=== PATIENT | female | born 1935 | race American Indian/Alaskan Native ===

== ENCOUNTER 2017-11-14 11:26 | Inpatient (IN) | payer MEDICARE, OTHER, SELFPAY ==
[2017-11-09 14:18] VITALS: BMI 28.7
[2017-11-14] VITALS (19 sets, daily range): BP systolic 127–181; BP diastolic 57–86; PULSE 81–100; RESP 12–18; TEMP 36.1–36.8; O2SAT 94–100; BMI 27.7
--- NOTE | 2017-11-14 | DI.RAD.S_ITS ---
PROCEDURE: XR LUMBAR SPINE 2-3V INDICATIONS: L4-5 TLIF TECHNIQUE: 2 views of the lumbar spine were acquired. COMPARISON: [facility] Outside Film, MR, MR LUMBAR SPINE WITHOUT CONTRAST, 10/08/2017, 10:41. FINDINGS: Bones: Immediate postoperative examination after placement of transverse pedicle screws and vertical fixation rods, and interbody disc prosthesis at L4-5, establishing normal alignment. Soft tissues: Overlying bowel gas pattern is normal. No suspicious soft tissue calcifications. IMPRESSION: Normal alignment after L4-5 spine fusion. Dictated by: Joseph Taylor M.D. on 11/14/2017 at 15:41 Approved by: Joseph Taylor M.D. on 11/14/2017 at 15:44
[2017-11-14] MEDS: LACTATED RINGERS 1,000 ML 42 ML IV ×2 (11:58→14:01)
--- NOTE | 2017-11-14 12:16 | PM.PREOP ---
Pre-operative Note Interval Note Pre-op Check: History & Physical Reviewed by Physician, Exam Performed and History & Physical exam performed today
[2017-11-14] MEDS: CEFAZOLIN 2 GM/100 ML FROZ.PIGGY IV ×2 (12:53→23:37)
--- NOTE | 2017-11-14 13:45 | SUR.OPER ---
Prone on spine table, head in foam head support, padded chest and pelvic supports, gel pad at knees, lower legs supported by pillows; nipples, genitalia and toes free of pressure, arms secured on foam padded arm boards at <90 degrees abduction. Tape over blanket at thigh secured to table.
[2017-11-14] MEDS: BUPIVACAINE LIPOSOME 266 MG/20 ML VIAL INJ (13:58)
[2017-11-14] MEDS: BUPIVACAINE 0.25% W/ EPI 50 ML VIAL 30 ML INJ (13:58)
[2017-11-14] MEDS: fentaNYL 100 MCG/2 ML INJ 50 MCG IV ×5 (13:59→16:04)
--- NOTE | 2017-11-14 15:21 | PM.OP.1 ---
Operative Date/Time/Diagnoses Date of procedure: 11/14/17 Time of procedure: 12:21 Pre-op diagnosis: 1. L4-5 spondylolisthesis 2. L4-5 spinal stenosis 3. L4-5 spondylosis with radiculopathy Post-op diagnosis: same Procedure & Clinicians Procedure: 1. L4-5 Postero-lateral and posterior interbody fusion 2. L4-5 interbody cage placement. 3. L4-5 decompressive laminectomy with bilateral facetecomies 4. L4-5 Posterior non-segmental instrumentation 5. [place] of bone marrow from iliac crest 6. Utilization of microsurgical technique and operating microscope Same procedure as scheduled: Yes Indications: Patient has been having chronic back pain and worsening lumbar radiculopathy. Patient failed multiple conservative management with worsening pain weakness and numbness in her lower extremity. Patient has been having difficulty performing activity of daily living. After discussing risks benefits of treatment options, patient elected proceed with surgery. Surgeon: Master Dickson Newspaper Correspondent: Alva Hugo Click Yes if Unassisted: No Anesthesia Type: General Operative Notes Closure Type: primary Specimen(s): none sent Implants & Drains: Globus revolve, Globus Rise cage Applied: catheter Estimated Blood Loss (mL): 100 Blood products transfused: none Procedure in detail: Patient was seen in the preoperative area. Risks and benefits of the surgery was discussed with the patient. Informed consent was obtained from the patient and placed in the chart. Surgical site was marked. Patient was taken to the operative room. General anesthesia was administered. Prophylactic antibiotic was given to the patient less than 30 min before the incision was made. Patient was placed into a prone position on the Matthew table. Patient's back was then prepped and draped in the sterile fashion. Time-out was performed at this time. Using AP and lateral C-arm imaging the interval between L4-5 was identified and marked on patient's back. A 2 inch incision 2 in from midline was made on the right side first. The fascia was incised in line with skin incision. Globus MARS retractors was placed inside the incision and docked onto the L4 lamina. Using microsurgical technique and operating microscope, a L4 laminectomy and L4-5 facetectomy was performed using a Kerrison rongeur. The disc space at L4-5 was identified. And a total diskectomy was performed at L4-5 level. The endplates were decorticated using a rasp and shaver. The total diskectomy and decortication was performed at L4-5 level in order to to accomplish a L4-5 fusion. The local bone from the laminectomy and facetectomy was saved for local bone grafting. After the total diskectomy and decortication was completed, Globus viacell bone graft material was combined with local bone that was harvested earlier. At this time, a separate skin is incision was made over the iliac crest. A Jamshidi needle was inserted into the iliac crest through a separate skin incision. 5 cc of bone marrow aspiration was obtained through the separate skin incision using a Jamshidi needle from the iliac crest. The bone marrow aspiration was combined with local bone and the via cell bone grafting material. The bone grafting material was placed into the L4-5 interbody space along with a expandable cage. The cage was expanded to its maximum height using the torque limiting screwdriver. At this time a mirror image incision was made on the left side. The fascia was incised in line with the skin incision. Globus MARS retractor was inserted and docked onto the L4-5 posterolateral gutter. Using the power drill, posterior-lateral decortication was performed at L4-5 level until bleeding cortical bone was identified. The remaining bone grafting material was placed into the L4-5 posterior lateral gutter he order to accomplish posterolateral fusion at the L4-5 level. Using the double C-arm technique, pedicle screws were placed into the L4-5 pedicles bilaterally. This was done by placing the Jamshidi needle into the pedicles, then placing the guidewires over the Jamshidi needle, and finally placing the cannulated screws over the guidewires bilaterally. After the pedicle screws were placed, 2 titanium rods was locked into the heads of the pedicle screws using locking caps and torque limiting screwdriver. After all the hardware was placed, and confirmed with AP and lateral C-arm imaging, the wound was then irrigated with sterile normal saline and packed with Ray-Homa gauze for 3 min to accomplish hemostasis. After the gauze was removed the deep fascia was closed with #1 Vicryl suture. The subcutaneous layer was closed with 2-0 Vicryl. The skin was closed with skin yris. Patient tolerated the procedure well. There were no complications. Complications: none Condition: stable Disposition: Acute Care Plan for aftercare: Admit to inpatient hospital
--- NOTE | 2017-11-14 15:24 | P.OP_ITS ---
Operative Date/Time/Diagnoses Date of procedure: 11/14/17 Time of procedure: 12:21 Pre-op diagnosis: 1. L4-5 spondylolisthesis 2. L4-5 spinal stenosis 3. L4-5 spondylosis with radiculopathy Post-op diagnosis: same Procedure & Clinicians Procedure: 1. L4-5 Postero-lateral and posterior interbody fusion 2. L4-5 interbody cage placement. 3. L4-5 decompressive laminectomy with bilateral facetecomies 4. L4-5 Posterior non-segmental instrumentation 5. [place] of bone marrow from iliac crest 6. Utilization of microsurgical technique and operating microscope Same procedure as scheduled: Yes Indications: Patient has been having chronic back pain and worsening lumbar radiculopathy. Patient failed multiple conservative management with worsening pain weakness and numbness in her lower extremity. Patient has been having difficulty performing activity of daily living. After discussing risks benefits of treatment options, patient elected proceed with surgery. Surgeon: Master Dickson Media Operator: Alva Hugo Click Yes if Unassisted: No Anesthesia Type: General Operative Notes Closure Type: primary Specimen(s): none sent Implants & Drains: Globus revolve, Globus Rise cage Applied: catheter Estimated Blood Loss (mL): 100 Blood products transfused: none Procedure in detail: Patient was seen in the preoperative area. Risks and benefits of the surgery was discussed with the patient. Informed consent was obtained from the patient and placed in the chart. Surgical site was marked. Patient was taken to the operative room. General anesthesia was administered. Prophylactic antibiotic was given to the patient less than 30 min before the incision was made. Patient was placed into a prone position on the Matthew table. Patient's back was then prepped and draped in the sterile fashion. Time- out was performed at this time. Using AP and lateral C-arm imaging the interval between L4-5 was identified and marked on patient's back. A 2 inch incision 2 in from midline was made on the right side first. The fascia was incised in line with skin incision. Globus MARS retractors was placed inside the incision and docked onto the L4 lamina. Using microsurgical technique and operating microscope, a L4 laminectomy and L4- 5 facetectomy was performed using a Kerrison rongeur. The disc space at L4-5 was identified. And a total diskectomy was performed at L4-5 level. The endplates were decorticated using a rasp and shaver. The total diskectomy and decortication was performed at L4-5 level in order to to accomplish a L4-5 fusion. The local bone from the laminectomy and facetectomy was saved for local bone grafting. After the total diskectomy and decortication was completed , Globus viacell bone graft material was combined with local bone that was harvested earlier. At this time, a separate skin is incision was made over the iliac crest. A Jamshidi needle was inserted into the iliac crest through a separate skin incision. 5 cc of bone marrow aspiration was obtained through the separate skin incision using a Jamshidi needle from the iliac crest. The bone marrow aspiration was combined with local bone and the via cell bone grafting material. The bone grafting material was placed into the L4-5 interbody space along with a expandable cage. The cage was expanded to its maximum height using the torque limiting screwdriver. At this time a mirror image incision was made on the left side. The fascia was incised in line with the skin incision. Globus MARS retractor was inserted and docked onto the L4-5 posterolateral gutter. Using the power drill, posterior- lateral decortication was performed at L4-5 level until bleeding cortical bone was identified. The remaining bone grafting material was placed into the L4-5 posterior lateral gutter he order to accomplish posterolateral fusion at the L4- 5 level. Using the double C-arm technique, pedicle screws were placed into the L4-5 pedicles bilaterally. This was done by placing the Jamshidi needle into the pedicles, then placing the guidewires over the Jamshidi needle, and finally placing the cannulated screws over the guidewires bilaterally. After the pedicle screws were placed, 2 titanium rods was locked into the heads of the pedicle screws using locking caps and torque limiting screwdriver. After all the hardware was placed, and confirmed with AP and lateral C-arm imaging, the wound was then irrigated with sterile normal saline and packed with Ray-Homa gauze for 3 min to accomplish hemostasis. After the gauze was removed the deep fascia was closed with #1 Vicryl suture. The subcutaneous layer was closed with 2-0 Vicryl. The skin was closed with skin yris. Patient tolerated the procedure well. There were no complications. Complications: none Condition: stable Disposition: Acute Care Plan for aftercare: Admit to inpatient hospital
[2017-11-14] MEDS: LACTATED RINGERS 1,000 ML 100 ML IV (15:37)
[2017-11-14] MEDS: HYDROMORPHONE 1 MG INJ 0.5 MG IV ×6 (16:10→16:41)
[2017-11-14] MEDS: SODIUM CHLORIDE 0.9% 1,000 ML 100 ML IV (17:28)
[2017-11-14] MEDS: OXYCODONE IR 5 MG TABLET 10 MG PO ×3 (17:32→23:41)
--- NOTE | 2017-11-14 18:57 | PC.NURSE ---
Addendum entered by Mariana Hogan R.N. 11/14/17 21:10: Bed alarm on for pt safety. Stable post op course. Original Note: Addendum entered by Mariana Hogan R.N. 11/14/17 21:09: Original Note: Addendum entered by Mariana Hogan R.N. 11/14/17 21:04: Pt awake, Med at 2030 for discomfort w/fair relief. Dsg to back CDI. Family in room. Allen cath patent clear urine. Stable post op course. Call light w/in reacbh= Original Note: Pt arrrived to RM 215 from PACU@ 1650. Awake. drowsy, Dsg to back CDI. IV of NR @ 100cc/hr infusing via pump into the LFA w/o incidence. Med @ 1730 w/oxycodone 10mg w/good relief. Allen cath patent clear yellow urine. Call light w/in reach, bed alarm on for pt safety.
[2017-11-14] MEDS: DOCUSATE 100 MG CAPSULE PO (20:25)
[2017-11-14] MEDS: GEMFIBROZIL 600 MG TABLET PO (20:25)
[2017-11-14] MEDS: SENNOSIDES 8.6 MG TABLET 17.2 MG PO (20:26)
[2017-11-15] MEDS: ACETAMINOPHEN 325 MG TABLET 650 MG PO ×4 (00:27→20:05)
--- NOTE | 2017-11-15 01:09 | PC.NURSE ---
Addendum entered by Fatou Brito R.N. 11/15/17 03:38: Complains of 5/10 back pain and irritation from catheter. Also complains of itchiness. Medicated with Oxycodone + Benadryl. SCD's removed for next hour as per protocol and patient request. Original Note: Patient is alert and oriented. Breath sounds CTA with RA sat of 97%. HRR. Denies nausea. BT present but denies flatus. Indwelling catheter is patent with clear, pale yellow urine. Needing assistance to reposition q2h but prefers to lie on back. Dressing to back is CDI. CMS intact. Wearing bilateral footie SCD's. Received Oxycodone + Tylenol earlier for complaint of 8/10 incsional pain radiating into left thigh and currently states pain is 5/10 and tolerable. Fall risk score is high as patient reports multiple falls in past 3 months; bed alarm is activated. Family rooming in.
[2017-11-15] MEDS: diphenhydrAMINE 50 MG/ML VIAL 25 MG IV (03:30)
[2017-11-15] MEDS: OXYCODONE IR 5 MG TABLET 10 MG PO ×6 (03:30→22:26)
[2017-11-15] MEDS: SODIUM CHLORIDE 0.9% 1,000 ML 100 ML IV (03:36)
[2017-11-15 06:16] LABS: Hematocrit 34.1 % (36-46); Hemoglobin 11.6 g/dL (12.0-16.0)
[2017-11-15 06:19] VITALS: BP 125/57; PULSE 81; RESP 16; TEMP 36.7; O2SAT 96
[2017-11-15] MEDS: CEFAZOLIN 2 GM/100 ML FROZ.PIGGY IV (06:40)
[2017-11-15 08:13] VITALS: BP 129/53; PULSE 78; RESP 16; TEMP 36.6; O2SAT 95
[2017-11-15] MEDS: DOCUSATE 100 MG CAPSULE PO ×2 (08:25→21:10)
[2017-11-15] MEDS: GEMFIBROZIL 600 MG TABLET PO ×2 (08:25→21:10)
--- NOTE | 2017-11-15 09:29 | PM.PNPO.1 ---
Subjective Date Patient Seen: 11/15/17 Time Patient Seen: 09:19 Interval history: Patient is seen bedside status post L4-5 TLIF at [facility] postop day 1. She is doing well, her pain is well controlled but she has not been up with physical therapy. She would like to go home possibly tomorrow. She denies any numbness and tingling. She would like to have her catheter removed. Exam Vital Signs (past 8 hours): - 11/15/17 06:19 11/15/17 08:13 Temperature 98.1 F 97.9 F Pulse Rate 81 78 Respiratory Rate 16 16 Blood Pressure 125/57 H 129/53 H Pulse Oximetry 96 95 Oxygen Delivery Method Room Air Narrative Exam Narrative: Patient is well-developed well-nourished in no acute distress. Patient alert oriented x3. Examination shows that spinal dressing is clean dry and intact. Patient has full range of motion of the ankle 2+ pulses full sensation in the lower extremities and soft compressible calves. Objective Labs Result Diagrams: 11/15/17 05:45 Labs: Laboratory Results - last 24 hr 11/15/17 05:45 Hgb 11.6 L Hct 34.1 L Assessment & Plan Post-op (1) Spondylisthesis: Current Visit: Yes Status: Acute Postoperative Procedures Operation Date: 11/14/17 13:15 Actual Procedures Side Surgeon p L4-5 TLIF Master Dickson MD Patient is postop day 1 status post above procedure. Continue pain control and DVT prophylaxis have physical therapy work with patient. Possible discharge for tomorrow if she does well. Discontinue Allen once patient is out of bed. All questions answered at the time of examination Time Spent With Patient less than 15 minutes Quality VTE Deep Vein Thrombosis/Pulmonary Embolism Present on Admission: No
--- NOTE | 2017-11-15 10:00 | PT.IIE ---
Current Diagnoses Spondylolisthesis, site unspecified (11/14/17) Spondylolisthesis, lumbar region (11/14/17) Other spondylosis with radiculopathy, lumbar region (11/14/17) Spinal stenosis, lumbar region without neurogenic claudication (11/14/17) Surgery Performed Operation Date: 11/14/17 13:15 Actual Procedures p L4-5 TLIF - Master Dickson MD Surgical History (Last Updated 11/09/17 @ 14:40 by Libra Vázquez RN) History of Trey fundoplication (Acute) History of ankle surgery (Acute) History of partial hysterectomy (Acute) History of total left hip arthroplasty (Acute) History of tubal ligation (Acute) Hx of bilateral cataract extraction (Acute) S/P right rotator cuff repair (Acute) Medical History (Last Updated 11/09/17 @ 15:04 by Libra Vázquez RN) Diabetes (Acute) Glaucoma (Acute) History of tracheal stenosis (Acute) Idiopathic thrombocytopenia purpura (Acute) Rash (Acute) Physical Therapy Inpatient Evaluation/Re-Eval M1 PT/OT-IP Prior Functional Status Start: 11/15/17 10:20 Freq: NEEDED Status: Active Protocol: Document 11/15/17 10:00 MDD (Rec: 11/15/17 12:24 MDD [email or web address]) Medical Review Prior Functional Status Medical History Reviewed Yes Mobility and Gait independent with gait Activities of Daily Living and IADL's independent with ADL's Prior Functional Level (Other details) 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 Previous L hip replacement 2 years ago. Social History Household Members family children Living Arrangements House Number of Floors (Floors) Two Floors Number of Stairs To Enter/Railing? 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 She is paid caregiver through the [employer] for her mother. Daughters live at home and are available to help throughout the day. M1 PT/OT-IP Prior Functional Status Start: 11/15/17 11:56 Freq: NEEDED Status: Active Protocol: Document 11/15/17 10:00 MDD (Rec: 11/15/17 12:24 MDD [email or web address]) M2 PT-IP Current Condition Start: 11/15/17 11:56 Freq: NEEDED Status: Active Protocol: Document 11/15/17 10:00 MDD (Rec: 11/15/17 12:24 MDD [email or web address]) Physical Therapy Current Condition Precautions Lumbar Precautions Log Roll No Twisting Limit Bending Lifting Restriction of 10 lbs Gait Belt above Incisional Area M3 PT-IP Subjective Start: 11/15/17 11:56 Freq: NEEDED Status: Active Protocol: Document 11/15/17 10:00 MDD (Rec: 11/15/17 12:24 MDD [email or web address]) Subjective Physical Therapy Visit Type Type Initial Evaluation Visit Start Time 09:40 Visit Stop Time 10:22 Total Visit Minutes 32 Notes left room to allow patient to sit up in chair from 10:00 to 10:12 Number of BOOK JACKET COVER MACHINE OPERATOR Visits 0 Physical Therapy Visit Comments Patient Comments Very motivated to go home Therapy Pain Assessment Pain When Pain Assessed After Treatment Pain Present Pain Present Pain Reported Location Back Intensity 6 Scale Used Numeric (1 - 10) Description Aching Pain Behaviors Facial Grimacing Guarding M4 PT-IP Mobility and Gait Start: 11/15/17 11:56 Freq: NEEDED Status: Active Protocol: Document 11/15/17 10:00 MDD (Rec: 11/15/17 12:24 MDD [email or web address]) PT-Bed Mobility Assessment Rolling Type of Rolling Bilateral Level of Assist Independent Supine to Sit Supine to Sit Standby Assistance Sit to Supine Sit to Supine Standby Assistance Scooting Scooting to Edge of Bed Independent Scooting Up and Down in Bed Independent PT-Transfer Assessment Sit to and From Stand Sit to and from Stand Standby Assistance Contact Guard Assistance Equipment Transfer Assistive Device Gait Belt Front Wheeled Walker Orthotic/Prosthetic Devices or Brace: No Transfers Transfer Destination Bed Chair Transfer Ability Level of Assist Standby Assistance Gait Assessment Gait Gait Assistance Required: Standby Assistance Contact Guard Assist Distance (Feet) (feet) 25 Able to Maintain Weight Bearing Status Yes During Gait Assistive Devices Assistive Device Gait Belt Front Wheeled Walker Gait Deviations General Gait Pattern Antalgic PT-Balance Assessment Sitting Balance and Reactions Static Sitting Balance Ability Normal Dynamic Sitting Balance Ability Normal M5 PT-IP Objective Assessments Start: 11/15/17 11:56 Freq: NEEDED Status: Active Protocol: Document 11/15/17 10:00 MDD (Rec: 11/15/17 12:24 MDD [email or web address]) Orientation Orientation/Cognition Level of Alertness Alert Orientation Name Age Birthday Month Date Year Day of Week Place Situation Language Function Ability No Deficits Noted Safety Awareness Understands Safety Issues Memory Description No Deficits Noted Gross Range of Motion Lower Extremity ROM Assessment Within Functional Limits Strength Lower Extremity Strength Assessment Within Functional Limits Coordination Assessment Gross Coordination Gross Coordination WNL Sensation Assessment Sensation Light Touch Intact M6 PT-IP Treatment Start: 11/15/17 11:56 Freq: NEEDED Status: Active Protocol: Document 11/15/17 10:00 MDD (Rec: 11/15/17 12:24 MDD [email or web address]) Physical Therapy Treatment Education Education Provided Precautions Weight Bearing Status Post-Op Packet Safety M7 PT-IP Assessment and Plan Start: 11/15/17 11:56 Freq: NEEDED Status: Active Protocol: Document 11/15/17 10:00 MDD (Rec: 11/15/17 12:24 MDD [email or web address]) PT Summary Assessment and Plan Potential Rehabilitation Potential Excellent Status of Condition at Evaluation Stable Summary Impairments Pain ROM Transfers Gait Activity Tolerance Progress Towards Goals Progressing Toward Goals Assessment Summary Pt demonstrates ability to get into bed independently, requires CGA to SBA for safety with transfers and gait. Goals Bed Mobility Goal Independent Transfer Goal Independent Gait Goal Independent Gait Distance 100 Frequency of Treatment Frequency Of Treatment Twice a Day Treatment Plan Physical Therapy Treatment Plan Bed Mobility Training Transfer Training Gait Training Therapeutic Exercise Post Op Education Discharge Planning Discharge Recommendations PT Discharge Recommendations Home Home with Assistance Equipment Needed for Home Before front wheeled walker Discharge
--- NOTE | 2017-11-15 10:28 | OT.IP.EVAL ---
Current Diagnoses Spondylolisthesis, site unspecified (11/14/17) Spondylolisthesis, lumbar region (11/14/17) Other spondylosis with radiculopathy, lumbar region (11/14/17) Spinal stenosis, lumbar region without neurogenic claudication (11/14/17) Surgery Performed Operation Date: 11/14/17 13:15 Actual Procedures p L4-5 TLIF - Master Dickson MD Past Medical History (Last Updated 11/09/17 @ 15:04 by Libra Vázquez RN) Diabetes (Acute) Glaucoma (Acute) History of tracheal stenosis (Acute) Idiopathic thrombocytopenia purpura (Acute) Rash (Acute) Surgical History (Last Updated 11/09/17 @ 14:40 by Libra Vázquez RN) History of Trey fundoplication (Acute) History of ankle surgery (Acute) History of partial hysterectomy (Acute) History of total left hip arthroplasty (Acute) History of tubal ligation (Acute) Hx of bilateral cataract extraction (Acute) S/P right rotator cuff repair (Acute) Occupational Therapy Inpatient Evaluation/Re-Eval M1 PT/OT-IP Prior Functional Status Start: 11/15/17 10:20 Freq: NEEDED Status: Active Protocol: Document 11/15/17 09:51 ADH (Rec: 11/15/17 10:27 ADH [email or web address]) Medical Review Prior Functional Status Medical History Reviewed Yes Social History Household Members children Living Arrangements House Home Environment Standard Height Toilet Home Equipment Bedside Commode Tub Transfer Bench 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 M3 OT- IP Subjective and Pain Start: 11/15/17 10:20 Freq: Status: Active Protocol: Document 11/15/17 09:51 ADH (Rec: 11/15/17 10:27 ADH [email or web address]) OT- Subjective Occupational Therapy Visit Type Type Initial Evaluation Visit Start Time 09:30 Visit Stop Time 09:51 Total Visit Minutes 21 OT Pain Assessment Pain When Pain Assessed During Mobility Pain Present Pain Present Denied Pain M4 OT- IP ADL's Start: 11/15/17 10:20 Freq: Status: Active Protocol: Document 11/15/17 09:51 ADH (Rec: 11/15/17 10:27 ADH [email or web address]) OT [id number] General Evaluation Self-Feeding Ability Independent OT ADL-Grooming General Evaluation Grooming Ability Standby Assistance OT ADL-Oral Care General Eval Oral Care Ability Standby Assistance OT ADL-Dressing General Eval Upper Body Dressing Ability Independent Lower Body Dressing Ability Contact Guard Assistance Minimal Assistance Areas Needing Assistance Underpants/Brief Pants/Shorts Socks Shoes Comments OT Dressing Comments Pt needing CGA and/or adaptive devices for LB dressing d/t back precautions. OT ADL-Toileting General Evaluation Toileting Ability Total Assistance Comments OT Toileting Comments currently dependent on catheter. Pt able to ambulate to/from toilet and transfer to [facility] over toilet with CGA, FWW , and gait belt. No LOB or sway noted. M6 OT- IP Functional Cognition Start: 11/15/17 10:20 Freq: Status: Active Protocol: Document 11/15/17 09:51 ADH (Rec: 11/15/17 10:27 ADH [email or web address]) Cognitive Factors Limiting Selfcare Function Cognitive Ability Level of Alertness Alert Patient Orientation Month Date Year Day of Week Place Situation Attention Span Ability Capable of Focused Attention Capable of Sustained Attention Ability to Follow Commands Able to Follow Multi-Step Commands Memory Description No Deficits Noted Safety Awareness No Deficits Noted Problem Solving Ability No deficits Noted Executive Function Ability No Deficits Noted Abstract Thinking Ability No Deficits Noted M7 OT- IP Mobility and Balance Start: 11/15/17 10:20 Freq: Status: Active Protocol: Document 11/15/17 09:51 ADH (Rec: 11/15/17 10:27 ADH [email or web address]) OT- Bed Mobility Assessment Rolling Type of Rolling Log Rolling Level of Assistance Contact Guard Assistance Supine to Sit Supine to Sit Assist Contact Guard Assistance OT-Transfer Assessment Sit to and From Stand Sit to and from Stand Contact Guard Assistance Transfers Transfer Ability Contact Guard Assistance Technique Transfer Destination Bed Chair Toilet Transfer Technique Stand Step Pivot Devices Transfer Assistive Devices Gait Belt Front Wheeled Walker OT- Gait Assessment Gait Gait Assistance Required: Contact Guard Assist Distance (Feet) (feet) 15 Assistive Devices Assistive Device Front Wheeled Walker M8 OT- IP Objective Assessments Start: 11/15/17 10:20 Freq: Status: Active Protocol: Document 11/15/17 09:51 ADH (Rec: 11/15/17 10:27 ADH [email or web address]) OT Gross Range of Motion Upper Extremity Range of Motion Assessment Within Functional Limits OT Strength Upper Extremity Strength Assessment Within Functional Limits M9 OT- IP Assessment and Plan Start: 07/12/18 10:20 Freq: Status: Active Protocol: Document 11/15/17 09:51 ADH (Rec: 11/15/17 10:27 ADH [email or web address]) OT Summary Assessment and Plan Potential Rehabilitation Potential Excellent Analytic Complexity at Evaluation Low Summary OT Impairments Strength Balance Progress Towards Goals Progressing Toward Goals Assessment Summary Pt presenting with excellent functional mobility, requiring only light physical assistance for transfer in/out of bed, around room, and on/ off toilet. Pt impacted by fatigue and activity tolerance , benefits from rest breaks and FWW use. Pt with increased reliance on AD over baseline. Family present and able to provide some assistance, anticipate pt safe to d/c home with family assist when medically stable. Treatment Plan OT Treatment Plan ADL Training Functional Mobility Discharge Recommendations OT Discharge Recommendations Home with Assistance Home Equipment Needs FWW
--- NOTE | 2017-11-15 14:15 | PT.IPTN ---
Current Diagnoses Spondylolisthesis, site unspecified (11/14/17) Spondylolisthesis, lumbar region (11/14/17) Other spondylosis with radiculopathy, lumbar region (11/14/17) Spinal stenosis, lumbar region without neurogenic claudication (11/14/17) Surgery Performed Operation Date: 11/14/17 13:15 Actual Procedures p L4-5 TLIF - Master Dickson MD Physical Therapy Treatment Note M2 PT-IP Current Condition Start: 11/15/17 11:56 Freq: NEEDED Status: Active Protocol: Document 11/15/17 10:00 MDD (Rec: 11/15/17 12:24 MDD [email or web address]) Physical Therapy Current Condition Precautions Lumbar Precautions Log Roll No Twisting Limit Bending Lifting Restriction of 10 lbs Gait Belt above Incisional Area M3 PT-IP Subjective Start: 11/15/17 11:56 Freq: NEEDED Status: Active Protocol: Document 11/15/17 14:15 GGD (Rec: 11/15/17 15:39 GGD [id number]) Subjective Physical Therapy Visit Type Type Treatment Note Visit Start Time 13:45 Visit Stop Time 14:45 Total Visit Minutes 30 Number of EMPLOYEE RELATIONS DIRECTOR Visits 1 Physical Therapy Visit Comments Patient Comments Pt states she doing better. Therapy Pain Assessment Pain When Pain Assessed After Treatment Pain Present Pain Present Pain Reported Location Back Intensity 4 Scale Used Numeric (1 - 10) M4 PT-IP Mobility and Gait Start: 11/15/17 11:56 Freq: NEEDED Status: Active Protocol: Document 11/15/17 14:15 GGD (Rec: 11/15/17 15:39 GGD [id number]) PT-Bed Mobility Assessment Rolling Level of Assist Standby Assistance Supine to Sit Supine to Sit Contact Guard Assistance Sit to Supine Sit to Supine Standby Assistance Scooting Scooting to Edge of Bed Independent PT-Transfer Assessment Sit to and From Stand Sit to and from Stand Standby Assistance Contact Guard Assistance Equipment Transfer Assistive Device Gait Belt Front Wheeled Walker Transfers Transfer Destination Bed Comments Mobility Comments Pt need cues for log roll and precutions. Gait Assessment Gait Gait Assistance Required: Contact Guard Assist Distance (Feet) (feet) 200 Assistive Devices Assistive Device Gait Belt Front Wheeled Walker Gait Deviations General Gait Pattern Antalgic Factors Limiting Gait Function Factors Limiting Gait Function Decreased Activity Tolerance Pain M5 PT-IP Objective Assessments Start: 11/15/17 11:56 Freq: NEEDED Status: Active Protocol: Document 11/15/17 10:00 MDD (Rec: 11/15/17 12:24 MDD [email or web address]) Orientation Orientation/Cognition Level of Alertness Alert Orientation Name Age Birthday Month Date Year Day of Week Place Situation Language Function Ability No Deficits Noted Safety Awareness Understands Safety Issues Memory Description No Deficits Noted Gross Range of Motion Lower Extremity ROM Assessment Within Functional Limits Strength Lower Extremity Strength Assessment Within Functional Limits Coordination Assessment Gross Coordination Gross Coordination WNL Sensation Assessment Sensation Light Touch Intact M6 PT-IP Treatment Start: 11/15/17 11:56 Freq: NEEDED Status: Active Protocol: Document 11/15/17 14:15 GGD (Rec: 11/15/17 15:39 GGD [id number]) Physical Therapy Treatment Education Education Provided Precautions M7 PT-IP Assessment and Plan Start: 11/15/17 11:56 Freq: NEEDED Status: Active Protocol: Document 11/15/17 14:15 GGD (Rec: 11/15/17 15:39 GGD [id number]) PT Summary Assessment and Plan Summary Assessment Summary Pt need cues for safety and precuations. She was impulsive with mobility. She improved with gait distance. Frequency of Treatment Frequency Of Treatment Twice a Day Treatment Plan Physical Therapy Treatment Plan Bed Mobility Training Transfer Training Gait Training Therapeutic Exercise Post Op Education Discharge Planning Recommendations To Nursing Amount of Assist Needed Standby Assistance Discharge Recommendations PT Discharge Recommendations Home Home with Assistance Equipment Needed for Home Before front wheeled walker Discharge
--- NOTE | 2017-11-15 14:50 | CM.DANOTE ---
Patient is an 82 year old female who was admitted on 11/14/17 for TLIF. Pt has MCR and COMM for insurance and her PCP is not listed. EMR was reviewed and per MD pt tolerated procedure well but not stable for d/c today. 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 Pt is quite active and has supportive family that she lives with. Pt denies any hx of HH or SNF and states her preference is to d/c home with family assist when medically stable and does not anticipate any SW needs at d/c. Plan: SW to follow for likely pt d/c home with family assist when medically stable. SW to follow for any further needs. 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 Is this patient on Medicare? Yes Is the admit diagnosis the same? Yes Comment TLIF Prior Living Arrangements House Household Members family children Type of transporation used prior to Drives own vehicle admit Independent with ADL's Yes Is patient alert and oriented? Yes Caregiver for Another Yes: grandchilden in the home Referrals Initiated None needed Discharge Plan Home Transportation Arrangement Family can provide transport Review Status In Process Next Review Type Discharge Review
[2017-11-15 15:38] VITALS: BP 116/55; PULSE 74; RESP 18; TEMP 36.6; O2SAT 97
[2017-11-15 19:20] VITALS: BP 140/77; PULSE 77; RESP 18; O2SAT 99
[2017-11-15 19:24] VITALS: TEMP 36.8
[2017-11-15] MEDS: SODIUM CHLORIDE 0.9% FLUSH 10 ML IV (21:10)
[2017-11-15] MEDS: SENNOSIDES 8.6 MG TABLET 17.2 MG PO (21:10)
[2017-11-15] MEDS: hydrOXYzine pamoate 25 MG CAPSULE PO (22:27)
[2017-11-16 00:24] VITALS: BP 116/47; PULSE 85; RESP 18; TEMP 36.5; O2SAT 95
[2017-11-16] MEDS: OXYCODONE IR 5 MG TABLET 10 MG PO ×5 (01:39→15:17)
--- NOTE | 2017-11-16 02:03 | PC.NURSE ---
Addendum entered by Fatou Brito R.N. 11/16/17 04:47: Awake waiting for RN to bring pain meds as has requested they be given q3h. States pain is currently 5/10 at rest but does increase with activity. Original Note: Addendum entered by Fatou Brito R.N. 11/16/17 02:51: States pain is still 7/10; requested/medicated with Tylenol but declines offer of Vistaril or other pain medication. Original Note: Patient is alert and oriented. At shift change was up walking with walker in room independently and appeared steady on feet, but has reported (and reiterated tonight) that she has had several falls in past 3 months so when returned to bed the bed alarm was activated and patient informed and verbalizes understanding. Breath sounds CTA with RA sat of 97%. HRR. Denies nausea. BT present and abdomen is soft; passing flatus. Had catheter removed yesterday and denies dysuria, frequency, urgency or incontinence. Is able to turn herself in bed, and is currently lying on stomach; reminded to log roll and not to twist/bend. Dressing partially off so replaced with Coversite; incisions are stapled and well approximated without redness or drainage. Noted small steristrip dressing to left lateral aspect of dressing. At 0139 patient was medicated with Oxycodone for complaint of 7/10 left hip pain and provided ice pack for additional comfort. Family rooming in.
[2017-11-16] MEDS: ACETAMINOPHEN 325 MG TABLET 650 MG PO ×2 (02:48→14:03)
--- NOTE | 2017-11-16 07:41 | P.DS_ITS ---
History of Present Illness Date Patient Seen: 11/16/17 Time Patient Seen: 07:37 Chief complaint: [id number] Narrative: Patient is an 82-year-old female with a history of intractable back pain and failed conservative treatment. She elected to proceed with L4-L5 TLIF with Dr. Dickson at [facility]. Discharge Providers Date of admission: 11/14/17 11:26 Consults: 11/14/17 17:03 Consult to Occupational Therapy Evaluate & Treat Comment: Physician Instructions: Evaluate and treat Consult to Physical Therapy Evaluate & Treat Comment: Physician Instructions: Evaluate and Treat 11/15/17 15:19 Consult to Home Health Routine Comment: post op TLIF Reason For Exam: FWW for home use Discharge provider: Shanon Roblero PA-C Summary Discharge Diagnosis: 1. L4-5 spondylolisthesis 2. L4-5 spinal stenosis 3. L4-5 spondylosis with radiculopathy Hospital Course: Patient was admitted and taken the operating room and she had at L4-[address] Dickson. She recovered well and was transferred to the floor for further care. Postop day 2 patient is ambulating well, urinating without difficulty and pain was tolerable with pain medication. She was ready to be discharged home. Status at Discharge Cognitive/behavioral status at discharge: Alert orient x3 Functional status at discharge: uses cane/walker Overall status at discharge: patient is progressing back to baseline Time Spent with Patient Less than 30 minutes Exam Vital Signs (past 8 hours): - 11/16/17 00:24 Temperature 97.7 F Pulse Rate 85 Respiratory Rate 18 Blood Pressure 116/47 L Pulse Oximetry 95 Oxygen Delivery Method Room Air Oxygen Flow Rate 0 Narrative Exam Narrative: Patient was up using walker to the restroom. Able to urinate without difficulty. Back dressing intact and clean. Bilateral calves soft and nontender. 5/5 BLE. Neurovascular status intact. Alert orient x3. Objective Labs Result Diagrams: 11/15/17 05:45 Discharge Plan Discharge Plan Patient Disposition: Home, Self-Care Discharge Med Rec/Prescriptions Prescriptions: New acetaminophen 325 mg Tablet 650 mg PO Q6HR PRN (Reason: Pain, Mild (1-3)) Qty: 0 RF: 0 hydroxyzine pamoate 25 mg Capsule 25 mg PO Q4HR PRN (Reason: Nausea And Vomiting) Qty: 40 RF: 0 oxycodone 5 mg Tablet 10 mg PO Q4H PRN (Reason: Pain, Severe (7-10)) Qty: 60 RF: 0 Continue gemfibrozil 600 mg Tablet 600 mg PO BID RF: 0 albuterol sulfate [ProAir HFA] 90 mcg/actuation Hfa Aerosol Inhaler 2 puff INHALATION Q4-6H PRN (Reason: sob) RF: 0 Discontinued tramadol 50 mg Tablet 100 mg PO Q6H PRN (Reason: pain) RF: 0 celecoxib [Celebrex] 100 mg Capsule 100 mg PO BID RF: 0 Follow up/Referrals: Master Dickson MD [Physician] - (F/U in 10-14 days at scheduled appointment time and date. Any issues or concerns, contact the office. ) Provider Discharge Instructions Diet: Diet as Tolerated Activity: as tolerated. No bending, twisting or heavy lifting. Cold/Heat Therapy: Apply ice as needed for pain and swelling Wound Care Report to your healthcare provider any signs of infection, such as:: chills, fever, increased pain and unusual drainage Dressing: Keep dressing intact. May shower. Visit Report/Discharge Packet Instructions: DI for Transforaminal Lumbar Interbody Fusion Discharge Data Attending Provider: Master Dickson Admit Date/Time: 11/14/17 11:26 Quality VTE Deep Vein Thrombosis/Pulmonary Embolism Present on Admission: No
[2017-11-16] MEDS: GEMFIBROZIL 600 MG TABLET PO (07:45)
[2017-11-16] MEDS: DOCUSATE 100 MG CAPSULE PO (07:45)
[2017-11-16] MEDS: SODIUM CHLORIDE 0.9% FLUSH 10 ML IV (07:45)
[2017-11-16 07:50] VITALS: BP 144/72; PULSE 94; RESP 16; TEMP 36.6; O2SAT 96
--- NOTE | 2017-11-16 10:33 | PT.IPTN ---
Current Diagnoses Spondylolisthesis, site unspecified (11/14/17) Spondylolisthesis, lumbar region (11/14/17) Other spondylosis with radiculopathy, lumbar region (11/14/17) Spinal stenosis, lumbar region without neurogenic claudication (11/14/17) Surgery Performed Operation Date: 11/14/17 13:15 Actual Procedures p L4-5 TLIF - Master Dickson MD Physical Therapy Treatment Note M2 PT-IP Current Condition Start: 11/15/17 11:56 Freq: NEEDED Status: Active Protocol: Document 11/15/17 10:00 MDD (Rec: 11/15/17 12:24 MDD [email or web address]) Physical Therapy Current Condition Precautions Lumbar Precautions Log Roll No Twisting Limit Bending Lifting Restriction of 10 lbs Gait Belt above Incisional Area M3 PT-IP Subjective Start: 11/15/17 11:56 Freq: NEEDED Status: Active Protocol: Document 11/16/17 10:29 GGD (Rec: 11/16/17 10:33 GGD [id number]) Subjective Physical Therapy Visit Type Type Treatment Note Visit Start Time 09:55 Visit Stop Time 10:20 Total Visit Minutes 25 Number of CUSTOMER SERVICE PROFESSIONAL Visits 2 Physical Therapy Visit Comments Patient Comments States she having more pain and needs to move slowly. Therapy Pain Assessment Pain When Pain Assessed At Rest Pain Present Pain Present Pain Reported Location Left Hip Intensity 4 Scale Used Numeric (1 - 10) M4 PT-IP Mobility and Gait Start: 11/15/17 11:56 Freq: NEEDED Status: Active Protocol: Document 11/16/17 10:29 GGD (Rec: 11/16/17 10:33 GGD [id number]) PT-Bed Mobility Assessment Rolling Level of Assist Standby Assistance Supine to Sit Supine to Sit Contact Guard Assistance Sit to Supine Sit to Supine Standby Assistance Scooting Scooting to Edge of Bed Independent PT-Transfer Assessment Sit to and From Stand Sit to and from Stand Standby Assistance Contact Guard Assistance Equipment Transfer Assistive Device Gait Belt Front Wheeled Walker Transfers Transfer Destination Bedside Commode Comments Mobility Comments Pt transfer to [facility] in shower for shower with ANCHOR TACKER. Gait Assessment Gait Gait Assistance Required: Contact Guard Assist Distance (Feet) (feet) 100 Gait Deviations General Gait Pattern Antalgic Factors Limiting Gait Function Factors Limiting Gait Function Decreased Activity Tolerance Pain Comments Gait Comments Pt need cues for posture. M5 PT-IP Objective Assessments Start: 11/15/17 11:56 Freq: NEEDED Status: Active Protocol: Document 11/15/17 10:00 MDD (Rec: 11/15/17 12:24 MDD [email or web address]) Orientation Orientation/Cognition Level of Alertness Alert Orientation Name Age Birthday Month Date Year Day of Week Place Situation Language Function Ability No Deficits Noted Safety Awareness Understands Safety Issues Memory Description No Deficits Noted Gross Range of Motion Lower Extremity ROM Assessment Within Functional Limits Strength Lower Extremity Strength Assessment Within Functional Limits Coordination Assessment Gross Coordination Gross Coordination WNL Sensation Assessment Sensation Light Touch Intact M6 PT-IP Treatment Start: 11/15/17 11:56 Freq: NEEDED Status: Active Protocol: Document 11/16/17 10:29 GGD (Rec: 11/16/17 10:33 GGD [id number]) Physical Therapy Treatment Education Education Provided Precautions Equipment Issued Equipment Type and Company FWW M7 PT-IP Assessment and Plan Start: 11/15/17 11:56 Freq: NEEDED Status: Active Protocol: Document 11/16/17 10:29 GGD (Rec: 11/16/17 10:33 GGD [id number]) PT Summary Assessment and Plan Summary Assessment Summary Pt was slower with mobility. She did have improve safety and follow precuations. Frequency of Treatment Frequency Of Treatment Twice a Day Treatment Plan Physical Therapy Treatment Plan Bed Mobility Training Transfer Training Gait Training Therapeutic Exercise Post Op Education Discharge Planning Recommendations To Nursing Amount of Assist Needed Standby Assistance Discharge Recommendations PT Discharge Recommendations Home Home with Assistance Equipment Needed for Home Before front wheeled walker Discharge
--- NOTE | 2017-11-16 14:26 | CM.DPC ---
Per MD: patient to discharge home. Met with patient: patient agreeable to discharge and states daughter will provide transportation home. Patient stated she was in pain, but she expected to be in some level of pain and would rather be in pain at home. Plan: patient to discharge home today with supportive family. 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 Is this patient on Medicare? Yes Is the admit diagnosis the same? Yes Comment TLIF Prior Living Arrangements House Household Members family children Type of transporation used prior to Drives own vehicle admit Independent with ADL's Yes Is patient alert and oriented? Yes Caregiver for Another Yes: grandchilden in the home Referrals Initiated None needed Discharge Plan Home Transportation Arrangement Family can provide transport Review Status Complete Next Review Type Discharge Review
--- NOTE | 2017-11-16 15:31 | PC.NURSE ---
DISCHARGE: PATIENT'S DRSG WAS CHANGED TO COVERSITE X2. PATIENT STATES SHE IS READY TO GO HOME. LEFT W/ DAUGHTER, ALL PAPERWORK AND ALL BELONGINGS BY WC W/ INSURANCE INSPECTOR ESCORT TO VEHICLE.
--- NOTE | 2017-11-16 15:46 | OT.IP.TRT ---
Current Diagnoses Spondylolisthesis, site unspecified (11/14/17) Spondylolisthesis, lumbar region (11/14/17) Other spondylosis with radiculopathy, lumbar region (11/14/17) Spinal stenosis, lumbar region without neurogenic claudication (11/14/17) Surgery Performed Operation Date: 11/14/17 13:15 Actual Procedures p L4-5 TLIF - Master Dickson MD Occupational Therapy Treatment Note M2 OT-IP Current Condition Start: 11/15/17 10:20 Freq: Status: Active Protocol: Document 11/16/17 14:16 ADH (Rec: 11/16/17 15:46 ADH [id number]) Occupational Therapy Current Condition Post Operative Precautions Lumbar Precautions Log Roll No Twisting Limit Bending Lifting Restriction of 10 lbs Gait Belt above Incisional Area M3 OT- IP Subjective and Pain Start: 11/15/17 10:20 Freq: Status: Active Protocol: Document 11/16/17 14:16 ADH (Rec: 11/16/17 15:46 ADH [id number]) OT- Subjective Occupational Therapy Visit Type Type Treatment Note Visit Start Time 02:02 Visit Stop Time 02:16 Total Visit Minutes 14 OT Pain Assessment Pain When Pain Assessed At Rest Pain Present Pain Present Pain Reported Location Left Hip Intensity 4 Scale Used Numeric (1 - 10) Pain Behaviors Facial Grimacing Guarding Restlessness Wincing Management Techniques Distraction Modification of Treatment Re-positioning Timing of Activity with Medications M4 OT- IP ADL's Start: 11/15/17 10:20 Freq: Status: Active Protocol: Document 11/16/17 14:16 ADH (Rec: 11/16/17 15:46 ADH [id number]) OT ADL-Dressing General Eval Lower Body Dressing Ability Moderate Assistance Areas Needing Assistance Underpants/Brief Pants/Shorts Socks Shoes Assistive Devices Dressing Assistive Devices Long Handled Shoe Horn Comments OT Dressing Comments Pt reports having long handled dressing equipment at home, no needs noted at this time. Demo'd use of long handled equipment to aid during LB dressing tasks without breaking precautions. Pt also noted her family will assist prn. M6 OT- IP Functional Cognition Start: 11/15/17 10:20 Freq: Status: Active Protocol: Document 11/15/17 09:51 ADH (Rec: 11/15/17 10:27 ADH [id number]) Cognitive Factors Limiting Selfcare Function Cognitive Ability Level of Alertness Alert Patient Orientation Month Date Year Day of Week Place Situation Attention Span Ability Capable of Focused Attention Capable of Sustained Attention Ability to Follow Commands Able to Follow Multi-Step Commands Memory Description No Deficits Noted Safety Awareness No Deficits Noted Problem Solving Ability No deficits Noted Executive Function Ability No Deficits Noted Abstract Thinking Ability No Deficits Noted M7 OT- IP Mobility and Balance Start: 11/15/17 10:20 Freq: Status: Active Protocol: Document 11/15/17 09:51 ADH (Rec: 11/15/17 10:27 ADH [id number]) OT- Bed Mobility Assessment Rolling Type of Rolling Log Rolling Level of Assistance Contact Guard Assistance Supine to Sit Supine to Sit Assist Contact Guard Assistance OT-Transfer Assessment Sit to and From Stand Sit to and from Stand Contact Guard Assistance Transfers Transfer Ability Contact Guard Assistance Technique Transfer Destination Bed Chair Toilet Transfer Technique Stand Step Pivot Devices Transfer Assistive Devices Gait Belt Front Wheeled Walker OT- Gait Assessment Gait Gait Assistance Required: Contact Guard Assist Distance (Feet) (feet) 15 Assistive Devices Assistive Device Front Wheeled Walker M8 OT- IP Objective Assessments Start: 11/15/17 10:20 Freq: Status: Active Protocol: Document 11/15/17 09:51 ADH (Rec: 11/15/17 10:27 ADH [email or web address]) OT Gross Range of Motion Upper Extremity Range of Motion Assessment Within Functional Limits OT Strength Upper Extremity Strength Assessment Within Functional Limits M9 OT- IP Assessment and Plan Start: 11/15/17 10:20 Freq: Status: Active Protocol: Document 11/16/17 14:16 ADH (Rec: 11/16/17 15:46 ADH [id number]) OT Summary Assessment and Plan Summary Progress Towards Goals Safe For Discharge Goals Met Assessment Summary Pt safe to d/c at this time, with education and family support re: pt's precautions. Discharge Recommendations OT Discharge Recommendations Home with Assistance
== END 2017-11-16 15:20 | disposition home or self-care (01) | DRG 455 ==
PROVIDERS: Admitting Provider Orthopaedic Surgery Orthopaedic Surgery of the Spine; Visit Provider Orthopaedic Surgery Orthopaedic Surgery of the Spine
PROC: 0SG00AJ Fusion of Lumbar Vertebral Joint with Interbody Fusion Device, Posterior Approach, Anterior Column, Open Approach (ICD-10-PCS; principal; 2017-11-14 13:15)
DX: M43.16 Spondylolisthesis, lumbar region (principal); Z87.891 Personal history of nicotine dependence; M47.26 Other spondylosis with radiculopathy, lumbar region; M48.061 Spinal stenosis, lumbar region without neurogenic claudication
CPT/HCPCS: 36415; 72100; 76001; 85014; 85018; 93005; 97116; 97161; 97165; 97530; 97535; C1776; C9290; J0330; J0690; J1100; J1170; J1200; J2405; J2704; J3010